=== PATIENT | male | born 1970 | race African-American/Black ===

== ENCOUNTER 2018-10-05 09:54 | Emergency (ER) | payer MEDICARE, OTHER ==
[~2018-10-05] VITALS: Ht 188 cm; Wt 112.5 kg
[2018-10-05] MEDS ORDERED: IV NORMAL SALINE 1000ML BAG 1,000 ML IV SCH (10:03)
--- NOTE | 2018-10-05 10:12 | PHYS DOC ---
Past Medical History Past Medical History: Diabetes-Type II, Hypertension, Seizure Additional Past Medical Histor: Sz Additional Past Surgical Histo: colostomy Adult General Chief Complaint Chief Complaint: SYNCOPE HPI HPI Patient is a 48-year-old male who presents to the emergency department for evaluation. He has a history of autism, among other medical problems, and [place]. He had a witnessed syncopal episode at work, and EMS reported the patient initially had a blood pressure of 80s over 40s. The patient feels fine at this time, without complaint. He denies any chest pain, palpitations, shortness of breath, dizziness or lightheadedness. There are no alleviating, or exacerbating factors patient's symptoms. The patient was given his normal blood pressure medications this morning. Review of Systems Review of Systems Constitutional: Denies fever or chills [] Eyes: Denies change in visual acuity, redness, or eye pain [] HENT: Denies nasal congestion or sore throat [] Respiratory: Denies cough or shortness of breath [] Cardiovascular: The patient denies any shortness of breath, chest pain, palpitations, or orthopnea[] GI: Denies abdominal pain, nausea, vomiting, bloody stools or diarrhea [] : Denies dysuria or hematuria [] Musculoskeletal: Denies back pain or joint pain [] Integument: Denies rash or skin lesions [] Neurologic: Denies headache, focal weakness or sensory changes [] Endocrine: Denies polyuria or polydipsia [] All other systems were reviewed and found to be within normal limits, except as documented in this note. Current Medications Current Medications Current Medications Medications (Trade) Dose Ordered Sig/Funmilayo Start Time Stop Time Status Last Admin Dose Admin Sodium Chloride 1,000 ml @ 1,000 mls/hr Q1H 10/05/18 10:03 10/05/18 11:02 DC 10/05/18 10:18 1,000 MLS/HR Allergies Allergies Allergies Coded Allergies Type Severity Reaction Last Updated Verified strawberry Allergy Unknown 10/05/18 Yes Physical Exam Physical Exam PHYSICAL EXAM: CONSTITUTIONAL: Well developed, well nourished HEAD: normocephalic, atraumatic EENT: PERRL, EOMI. Conjunctivae normal color, sclerae non-icteric; moist mucous membranes. NECK: Supple, non-tender; no meningismus. LUNGS: Lungs CTA, breathing even and unlabored. Normal air movement. HEART: Regular rate and rhythm, no murmur CHEST: No deformity; non-tender ABDOMEN: The abdomen is soft, and non-tender, no masses or bruits. There is a colostomy present in the abdomen. EXTREM: Normal ROM; no deformity, no calf tenderness. Normal pulses palpable in all extremities. There is no pedal edema. SKIN: No rash; no diaphoresis NEURO: Alert; normal speech and cognition; CN's grossly intact; strength grossly intact without focal deficit. BACK: No CVA TTP. Current Patient Data Vital Signs Vital Signs Date Time Temp Pulse Resp B/P (MAP) Pulse Ox O2 Delivery O2 Flow Rate FiO2 10/05/18 11:30 60 20 136/78 (97) 100 Room Air 10/05/18 10:17 97.6 97.6 Lab Values Laboratory Tests Test 10/05/18 10:28 White Blood Count 5.0 x10^3/uL (4.0-11.0) Red Blood Count 4.51 x10^6/uL (4.30-5.70) Hemoglobin 13.5 g/dL (13.0-17.5) Hematocrit 40.5 % (39.0-53.0) Mean Corpuscular Volume 90 fL (79-100) Mean Corpuscular Hemoglobin 30 pg (25-35) Mean Corpuscular Hemoglobin Concent 33 g/dL (31-37) Red Cell Distribution Width 13.9 % (11.5-14.5) Platelet Count 226 x10^3/uL (140-400) Neutrophils (%) (Auto) 67 % (31-73) Lymphocytes (%) (Auto) 21 % (24-48) L Monocytes (%) (Auto) 11 % (0-9) H Eosinophils (%) (Auto) 1 % (0-3) Basophils (%) (Auto) 0 % (0-3) Neutrophils # (Auto) 3.4 x10^3/uL (1.8-7.7) Lymphocytes # (Auto) 1.1 x10^3/uL (1.0-4.8) Monocytes # (Auto) 0.5 x10^3/uL (0.0-1.1) Eosinophils # (Auto) 0.1 x10^3/uL (0.0-0.7) Basophils # (Auto) 0.0 x10^3/uL (0.0-0.2) Sodium Level 146 mmol/L (136-145) H Potassium Level 3.4 mmol/L (3.5-5.1) L Chloride Level 109 mmol/L (98-107) H Carbon Dioxide Level 26 mmol/L (21-32) Anion Gap 11 (6-14) Blood Urea Nitrogen 21 mg/dL (8-26) Creatinine 1.9 mg/dL (0.7-1.3) H Estimated GFR (Cockcroft-Gault) 45.8 BUN/Creatinine Ratio 11 (6-20) Glucose Level 119 mg/dL (70-99) H Lactic Acid Level 2.3 mmol/L (0.4-2.0) H Calcium Level 9.4 mg/dL (8.5-10.1) Total Bilirubin 0.2 mg/dL (0.2-1.0) Aspartate Amino Transferase (AST) 19 U/L (15-37) Alanine Aminotransferase (ALT) 30 U/L (16-63) Alkaline Phosphatase 103 U/L (46-116) Troponin I Quantitative < 0.017 ng/mL (0.000-0.055) Total Protein 6.7 g/dL (6.4-8.2) Albumin 3.6 g/dL (3.4-5.0) Albumin/Globulin Ratio 1.2 (1.0-1.7) Thyroid Stimulating Hormone (TSH) 1.735 uIU/mL (0.358-3.74) Free Thyroxine 0.76 ng/dL (0.76-1.46) Laboratory Tests 10/05/18 10:28 Laboratory Tests 10/05/18 10:28 EKG EKG Normal sinus rhythm at a rate of 74 beats for minute, left axis deviation, normal intervals. There are no acute ischemic ST/T changes. Nonspecific changes are present.[] There are no old EKG available for comparison. Radiology/Procedures Radiology/Procedures [] Course & Med Decision Making Course & Med Decision Making Pertinent Lab studies reviewed. (See chart for details) []11:55 AM: The patient's condition remains stable, and is feeling better and at his baseline, he has no complaints and would like to go home. His shoe caser is currently in the emergency department. She states that he has had similar episodes several times over the past few weeks and been evaluated at [facility] as well, in [place]. His creatinine was 1.4 on 08/05 at [facility]. I discussed test results with the patient's child caregiver private home, the need for close outpatient follow-up for further evaluation of his recurrent syncope, as well as follow-up for renal function monitoring, and return precautions. Dragon Disclaimer Dragon Disclaimer This electronic medical record was generated, in whole or in part, using a voice recognition dictation system. Departure Departure Impression: Primary Impression: Syncope Additional Impression: Renal insufficiency Disposition: HOME, SELF-CARE Condition: STABLE Referrals: ALEJANDRA CARLSON MD Patient Instructions: Chronic Renal Insufficiency, Syncope Additional Instructions: Further outpatient evaluation of recurrent syncopal episodes warranted. Please contact your primary care physician to help guide further outpatient evaluation, and follow up with cardiology as recommended. Additionally, monitoring of renal function, which was abnormal today with a creatinine of 1.9, is recommended. Please contact your primary care provider within the next week, to arrange a timely follow-up for further blood test monitoring and evaluation. Problem Qualifiers PAM CANAS MD Oct 05, 2018 10:12
[2018-10-05 10:42] LABS: BASO % 0 % (0-3); EOS # 0.1 x10^3/uL (0.0-0.7); EOS % 1 % (0-3); HEMATOCRIT 40.5 % (39.0-53.0); HEMOGLOBIN 13.5 g/dL (13.0-17.5); LYMPH # 1.1 x10^3/uL (1.0-4.8); LYMPH % 21 % (24-48); MEAN CORPUSCULAR HEMOGLOBIN 30 pg (25-35); MEAN CORPUSCULAR HGB CONC 33 g/dL (31-37); MEAN CORPUSCULAR VOLUME 90 fL (79-100); MONO # 0.5 x10^3/uL (0.0-1.1); MONO % 11 % (0-9); NEUT # 3.4 x10^3/uL (1.8-7.7); NEUT % 67 % (31-73); PLATELET COUNT 226 x10^3/uL (140-400); RED BLOOD COUNT 4.51 x10^6/uL (4.30-5.70); RED CELL DISTRIBUTION WIDTH 13.9 % (11.5-14.5)
[2018-10-05 10:50] LABS: CALCIUM 9.4 mg/dL (8.5-10.1); CREATININE 1.9 mg/dL (0.7-1.3); GFR 45.8; POTASSIUM 3.4 mmol/L (3.5-5.1)
[2018-10-05 10:55] LABS: ALBUMIN 3.6 g/dL (3.4-5.0); ALBUMIN/GLOBULIN RATIO 1.2 (1.0-1.7); TOTAL BILIRUBIN 0.2 mg/dL (0.2-1.0); TOTAL PROTEIN 6.7 g/dL (6.4-8.2)
[2018-10-05 11:06] LABS: FREE T4 0.76 ng/dL (0.76-1.46); THYROID STIM HORMONE (TSH) 1.735 uIU/mL (0.358-3.74)
[2018-10-05 11:30] VITALS: BP 136/78
--- NOTE | 2018-10-05 15:18 | EKG ---
[facility] [address] [place] [address] Test Date: 2018-10-05 Test Time: 10:03:53 Pat Name: CAREN BURCH Department: Room: Gender: M Transport Engineer: : 1970 Requested By: PAM CANAS Order Number: [id number] Reading MD: Measurements Intervals [place] Rate: 74 P: 28 [place]: 196 QRS: -4 QRSD: 84 T: -17 QT: 358 QTc: 398 Interpretive Statements SINUS RHYTHM LEFTWARD AXIS T ABNORMALITY IN INFERIOR LEADS ABNORMAL ECG RI6.01 No previous ECG available for comparison
== END 2018-10-05 12:11 | disposition home or self-care (01) ==
LOC: ER 09:55
DX: R55 Syncope and collapse (principal); N28.9 Disorder of kidney and ureter, unspecified; I10 Essential (primary) hypertension; E11.9 Type 2 diabetes mellitus without complications; Z91.018 Allergy to other foods
CPT/HCPCS: 36415; 80053; 83605; 84439; 84443; 84484; 85025; 93005; 96360; 99285; J7030

== ENCOUNTER 2019-02-23 09:51 | Emergency (ER) | payer MEDICARE, OTHER ==
[~2019-02-23] VITALS: Ht 185.4 cm; Wt 113.4 kg
--- NOTE | 2019-02-23 10:22 | PHYS DOC ---
Past Medical History Past Medical History: Bipolar, Diabetes-Type II, Hypertension, Seizure Additional Past Medical Histor: Sz, AUTISM Additional Past Surgical Histo: colostomy Alcohol Use: None Drug Use: None Adult General Chief Complaint Chief Complaint: DIZZY/LIGHT HEADED [facility] HPI Patient is a 49-year-old male, with history of bipolar disease, autism, and other health problems, who presents to the emergency department for evaluation. The patient's caregiver, was present with him, states that they called because he began complaining of dizziness exhibiting some labored breathing, and may hav e been clutching his chest. Although he denied any pain, he is often one to minimalize his symptoms, according to the caregiver. EMS did an EKG which they thought was consistent with an ST elevation MO by reviewed both their EKG and the patient's prior EKG and he does appear to have some left ventricular hypertrophy and both the hospital EKG, and the EMS EKG are unchanged compared to patient's prior EKG from this past summer. The patient denies any symptoms at this time and reports being back to his baseline. He denies any chest pain, current abdominal pain, has not had any recent nausea, vomiting, does admit to a mild intermittent cough. There are no alleviating or exacerbating factors to his symptoms. Patient was given 324 mg of aspirin by EMS. Review of Systems Review of Systems Constitutional: Denies fever or chills [] Eyes: Denies change in visual acuity, redness, or eye pain [] HENT: Denies nasal congestion or sore throat [] Respiratory: Denies pleuritic pain or shortness of breath [] Cardiovascular: No additional information not addressed in HPI [] GI: Denies abdominal pain, nausea, vomiting, bloody stools or diarrhea [] : Denies dysuria or hematuria [] Musculoskeletal: Denies back pain or joint pain [] Integument: Denies rash or skin lesions [] Neurologic: Denies headache, focal weakness or sensory changes [] Endocrine: Denies polyuria or polydipsia [] All other systems were reviewed and found to be within normal limits, except as documented in this note. Allergies Allergies Allergies Coded Allergies Type Severity Reaction Last Updated Verified strawberry Allergy Unknown 10/05/18 Yes Physical Exam Physical Exam PHYSICAL EXAM: CONSTITUTIONAL: Well developed, well nourished HEAD: normocephalic, atraumatic EENT: PERRL, EOMI. Conjunctivae normal color, sclerae non-icteric; moist mucous membranes. NECK: Supple, non-tender; no meningismus. LUNGS: There are questionable scattered rhonchi in the right middle and lower lung cheng, otherwise Lungs CTA, breathing even and unlabored. Normal air movement. HEART: Regular rate and rhythm, no murmur CHEST: No deformity; non-tender ABDOMEN: The abdomen is soft, and non-tender, no masses or bruits. EXTREM: Normal ROM; no deformity, no calf tenderness. Normal pulses palpable in all extremities. There is no pedal edema. SKIN: No rash; no diaphoresis NEURO: Alert; normal speech and cognition, although the patient does exhibit signs of autism, will follow basic commands, mental status is at baseline per caregiver; CN's grossly intact; strength grossly intact without focal deficit. BACK: No CVA TTP. Current Patient Data Vital Signs Vital Signs Date Time Temp Pulse Resp B/P (MAP) Pulse Ox O2 Delivery O2 Flow Rate FiO2 02/23/19 11:43 70 18 100 02/23/19 09:52 98.1 142/82 (102) Room Air 98.1 Lab Values Laboratory Tests Test 02/23/19 10:03 02/23/19 11:42 White Blood Count 4.4 x10^3/uL (4.0-11.0) Red Blood Count 4.59 x10^6/uL (4.30-5.70) Hemoglobin 13.6 g/dL (13.0-17.5) Hematocrit 40.7 % (39.0-53.0) Mean Corpuscular Volume 89 fL (79-100) Mean Corpuscular Hemoglobin 30 pg (25-35) Mean Corpuscular Hemoglobin Concent 33 g/dL (31-37) Red Cell Distribution Width 13.7 % (11.5-14.5) Platelet Count 218 x10^3/uL (140-400) Neutrophils (%) (Auto) 58 % (31-73) Lymphocytes (%) (Auto) 31 % (24-48) Monocytes (%) (Auto) 9 % (0-9) Eosinophils (%) (Auto) 2 % (0-3) Basophils (%) (Auto) 1 % (0-3) Neutrophils # (Auto) 2.5 x10^3/uL (1.8-7.7) Lymphocytes # (Auto) 1.4 x10^3/uL (1.0-4.8) Monocytes # (Auto) 0.4 x10^3/uL (0.0-1.1) Eosinophils # (Auto) 0.1 x10^3/uL (0.0-0.7) Basophils # (Auto) 0.0 x10^3/uL (0.0-0.2) Sodium Level 145 mmol/L (136-145) Potassium Level 3.4 mmol/L (3.5-5.1) L Chloride Level 107 mmol/L (98-107) Carbon Dioxide Level 30 mmol/L (21-32) Anion Gap 8 (6-14) Blood Urea Nitrogen 16 mg/dL (8-26) Creatinine 1.5 mg/dL (0.7-1.3) H Estimated GFR (Cockcroft-Gault) 59.9 BUN/Creatinine Ratio 11 (6-20) Glucose Level 144 mg/dL (70-99) H Calcium Level 9.1 mg/dL (8.5-10.1) Magnesium Level 1.9 mg/dL (1.8-2.4) Total Bilirubin 0.1 mg/dL (0.2-1.0) L Aspartate Amino Transferase (AST) 24 U/L (15-37) Alanine Aminotransferase (ALT) 33 U/L (16-63) Alkaline Phosphatase 116 U/L (46-116) Troponin I Quantitative < 0.017 ng/mL (0.000-0.055) CX-Rhp-G-Type Natriuretic Peptide 66 pg/mL (0-124) Total Protein 7.1 g/dL (6.4-8.2) Albumin 3.5 g/dL (3.4-5.0) Albumin/Globulin Ratio 1.0 (1.0-1.7) POC Troponin I 0.01 ng/ml (<0.08) Laboratory Tests 02/23/19 10:03 Laboratory Tests 02/23/19 10:03 EKG EKG []Normal sinus rhythm at a rate of 67 beats for minute, left axis deviation, normal intervals. There are no acute ischemic ST/T changes present. Borderline left ventricular hypertrophy is present anteriorly. Radiology/Procedures Radiology/Procedures PROCEDURE: PORTABLE CHEST 1V Examination: PORTABLE CHEST 1V History: Chest pain and dizziness Comparison/Correlation: None Findings: Portable upright frontal view chest was obtained. Heart size and pulmonary retrosternal. No infiltrate or pleural effusion. No pneumothorax. Bony structures are unremarkable. Impression: No active disease. Consider lateral view for more complete assessment if clinically desired. [] Course & Med Decision Making Course & Med Decision Making Pertinent Labs and Imaging studies reviewed. (See chart for details) []12:30 PM: The patient's condition remained stable, he is feeling significantly better has remained asymptomatic and has no complaints at this time. I discussed importance of close outpatient follow-up, and return precautions in detail. Patient's HEART score is a 3, indicating low risk. Dragon Disclaimer Dragon Disclaimer This electronic medical record was generated, in whole or in part, using a voice recognition dictation system. Departure Departure Impression: Primary Impression: Dizziness Additional Impression: Atypical chest pain Disposition: 01 HOME, SELF-CARE Condition: STABLE Referrals: EMILIA DODD MD (PCP) Patient Instructions: Chest Pain (Nonspecific), Dizziness Problem Qualifiers PAM CANAS MD Feb 23, 2019 10:22
--- NOTE | 2019-02-23 10:27 | EKG ---
[facility] [address] [place] [address] Test Date: 2019-02-23 Test Time: 09:58:27 Pat Name: CAREN BURCH Department: Room: Gender: M Welding Machine Operator: : 1970 Requested By: PAM CANAS Order Number: [id number] Reading MD: Foster Suárez MD Measurements Intervals [place] Rate: 67 P: 12 [place]: 224 QRS: 0 QRSD: 90 T: -8 QT: 362 QTc: 385 Interpretive Statements SINUS RHYTHM 1ST DEGREE AVB NON-SPECIFIC ST/T CHANGES Electronically Signed On 02-23-2019 13:41:30 DIRECTOR OF [employer] RELATIONS by Foster Suárez MD
[2019-02-23 10:30] LABS: BASO % 1 % (0-3); EOS # 0.1 x10^3/uL (0.0-0.7); EOS % 2 % (0-3); HEMATOCRIT 40.7 % (39.0-53.0); HEMOGLOBIN 13.6 g/dL (13.0-17.5); LYMPH # 1.4 x10^3/uL (1.0-4.8); LYMPH % 31 % (24-48); MEAN CORPUSCULAR HEMOGLOBIN 30 pg (25-35); MEAN CORPUSCULAR HGB CONC 33 g/dL (31-37); MEAN CORPUSCULAR VOLUME 89 fL (79-100); MONO # 0.4 x10^3/uL (0.0-1.1); MONO % 9 % (0-9); NEUT # 2.5 x10^3/uL (1.8-7.7); NEUT % 58 % (31-73); PLATELET COUNT 218 x10^3/uL (140-400); RED BLOOD COUNT 4.59 x10^6/uL (4.30-5.70); RED CELL DISTRIBUTION WIDTH 13.7 % (11.5-14.5); WHITE BLOOD COUNT 4.4 x10^3/uL (4.0-11.0)
--- NOTE | 2019-02-23 10:37 | RAD ---
Examination: PORTABLE CHEST 1V History: Chest pain and dizziness Comparison/Correlation: None Findings: Portable upright frontal view chest was obtained. Heart size and pulmonary retrosternal. No infiltrate or pleural effusion. No pneumothorax. Bony structures are unremarkable. Impression: No active disease. Consider lateral view for more complete assessment if clinically desired. Electronically signed by: Sharif Thompson MD (02/23/2019 10:34 AM) [facility]
[2019-02-23 10:42] LABS: CALCIUM 9.1 mg/dL (8.5-10.1); CREATININE 1.5 mg/dL (0.7-1.3); GFR 59.9; POTASSIUM 3.4 mmol/L (3.5-5.1)
[2019-02-23 10:46] LABS: ALBUMIN 3.5 g/dL (3.4-5.0); MAGNESIUM 1.9 mg/dL (1.8-2.4); TOTAL BILIRUBIN 0.1 mg/dL (0.2-1.0); TOTAL PROTEIN 7.1 g/dL (6.4-8.2)
[2019-02-23 12:13] VITALS: BP 132/90
--- NOTE | 2019-02-23 14:14 | EKG ---
[facility] [address] [place] [address] Test Date: 2019-02-23 Test Time: 12:01:19 Pat Name: CAREN BURCH Department: Room: Gender: M Team Supervisor: : 1970 Requested By: PAM CANAS Order Number: [id number] Reading MD: Measurements Intervals [place] Rate: 66 P: 32 [place]: 210 QRS: -4 QRSD: 86 T: -15 QT: 360 QTc: 379 Interpretive Statements SINUS RHYTHM LEFTWARD AXIS T ABNORMALITY IN INFERIOR LEADS ABNORMAL ECG RI6.01 No previous ECG available for comparison
== END 2019-02-23 12:35 | disposition home or self-care (01) ==
LOC: ER 09:51
DX: R42 Dizziness and giddiness (principal); R07.89 Other chest pain; F31.9 Bipolar disorder, unspecified; E11.9 Type 2 diabetes mellitus without complications; I10 Essential (primary) hypertension; F84.0 Autistic disorder; Z91.018 Allergy to other foods
CPT/HCPCS: 36415; 71045; 80053; 83735; 83880; 84484; 85025; 93005; 99285-25